=== PATIENT | female | born 1965 | race Caucasian/White ===

== ENCOUNTER 2021-11-22 06:57 | Outpatient (CLI) | payer BC ==
[2021-11-22] VITALS (17 sets, daily range): BP systolic 107–141; BP diastolic 68–96; PULSE 73–107; TEMP 98.1
[~2021-11-22] VITALS: Ht 162.6 cm; Wt 66.4 kg
[~2021-11-22 06:57] MED LIST: ASPIR-LOW81 MG PO; ATORVASTATIN; LIPITOR 40MG TA40 MG PO; WELLBUTRIN SR150 M1 PO; ZOVIRAX400 MG PO; ZYRTEC 10MG; rhinocort
--- NOTE | 2021-11-22 07:40 | NUR ---
pt to ct per wheelchair. Pt positioned in prone position on CT table. Monitors applied and O2 on at 2l/nc.
--- NOTE | 2021-11-22 07:50 | NUR ---
Dr Giang viewing films, into talk with pt regarding procedure.
--- NOTE | 2021-11-22 07:50 | NUR ---
Pt coughing frequently, pt given fentanyly 25 mcg to assist with depressing the cough.
--- NOTE | 2021-11-22 08:08 | NUR ---
Specimen obtained and placed in formalin by Dr Giang. Specimen labeled.
--- NOTE | 2021-11-22 11:35 | NUR ---
DC instructions reviewed with pt and , both express understanding. Bandaid remains clean, dry and intact. Respirations even and unlabored. INT DC'd with catheter intact. She is assisted out by wheelchair to 's car.
== END 2021-11-22 11:35 | disposition home or self-care (01) ==
LOC: COL.RAD 06:57
DX: C34.90 Malignant neoplasm of unspecified part of unspecified bronchus or lung (principal); R91.8 Other nonspecific abnormal finding of lung field
CPT/HCPCS: J3010

== ENCOUNTER 2022-01-21 07:50 | Day surgery (SDC) | payer BC ==
[~2022-01-21] VITALS: Ht 162.6 cm; Wt 61.2 kg
[2022-01-21 09:37] VITALS: BP 119/70; PULSE 133; TEMP 98.2
[2022-01-21 10:50] VITALS: BP 121/69; PULSE 125
--- NOTE | 2022-01-21 10:50 | NUR ---
Patient returns to room 2 per cart after having bronchoscopy and is coughing moderate amount. Breathing treatment being given. IV fluids infusing via port a catheter. Spouse in the room. Call light in reach and siderails up x2. Having slight amount of bleeding from nose. Spouse states that this happens frequently due to the oxygen. Taking ice chips and water.
[2022-01-21 11:05] VITALS: BP 120/82; PULSE 129
--- NOTE | 2022-01-21 11:05 | NUR ---
Continues to have coughing. Taking water.
[2022-01-21 11:20] VITALS: BP 100/85; PULSE 127
--- NOTE | 2022-01-21 11:20 | NUR ---
Less coughing. Offered snack and is eating vanilla pudding.
--- NOTE | 2022-01-21 11:22 | NUR ---
Dr. Zarco here and talks with patient and spouse. Eating vanilla pudding.
[2022-01-21 11:35] VITALS: BP 113/81; PULSE 123
--- NOTE | 2022-01-21 11:35 | NUR ---
Port a catheter deaccessed and was flushed with Heparin and saline per protocol. Assisted across the hallway to the bathroom on portable oxygen at 2L.
--- NOTE | 2022-01-21 11:53 | NUR ---
Dismissal instructions given and voices understanding of these.
--- NOTE | 2022-01-21 11:57 | NUR ---
Patient dismissed to home driven by spouse and taken to the front door per wheelchair and assisted into vehicle with instructions in hand.
== END 2022-01-21 11:57 | disposition home or self-care (01) ==
LOC: SDCO 07:50
DX: R09.02 Hypoxemia (principal); C34.91 Malignant neoplasm of unspecified part of right bronchus or lung; Z87.891 Personal history of nicotine dependence; Z79.899 Other long term (current) drug therapy; Z92.3 Personal history of irradiation; Z99.81 Dependence on supplemental oxygen; Z79.52 Long term (current) use of systemic steroids; Z85.828 Personal history of other malignant neoplasm of skin
CPT/HCPCS: J1644; J2704; J7120

== ENCOUNTER 2022-03-12 11:58 | Emergency (ER) | payer BC ==
[~2022-03-12] VITALS: Ht 162.6 cm; Wt 64.1 kg
[2022-03-12 12:20] VITALS: TEMP 98.3
[2022-03-12 12:58] LABS: EOS % 0.3 % (0.0-4.0); GRAN # 2.9 K/mm3 (1.4-6.5); GRAN % 71.7 % (42.2-75.2); LYMPH # 0.6 K/mm3 (1.2-3.4); LYMPH % 14.6 % (20.0-51.0); MEAN CELL VOLUME 100 fl (80.0-100.0); MEAN CORPUSCULAR HGB CONC 34 g/dl (33.0-37.0); MEAN PLATELET VOLUME 10.1 fl (7.4-10.4); MONO # 0.5 K/mm3 (0.1-0.6); MONO % 13.1 % (1.7-9.3); PLATELET COUNT 119 K/mm3 (130-400); RED BLOOD COUNT 2.44 M/mm3 (4.10-5.30); REDCELL DISTRIBUTION WIDTH-CV 19.3 % (11.5-14.5)
[2022-03-12 13:00] LABS: HEMATOCRIT 24.5 % (37.0-47.0); HEMOGLOBIN 8.2 g/dl (12.5-16.0); MEAN CORPUSCULAR HEMOGLOBIN 34 pg (27-31)
[2022-03-12 13:17] LABS: ALBUMIN 3.6 gm/dL (3.5-5.0); BILIRUBIN,TOTAL 0.3 mg/dL (0.2-1.2); CALCIUM 9.4 mg/dL (8.4-10.2); CREATININE, serum 0.77 mg/dL (0.57-1.11); POTASSIUM 4.1 mmol/L (3.5-4.5); TOTAL PROTEIN 7.2 gm/dL (6.2-8.1)
[2022-03-12] MEDS ORDERED: NORCO 325 MG-51 TAB PO (15:20)
[2022-03-12 15:30] VITALS: BP 120/94; PULSE 98
== END 2022-03-12 15:30 | disposition home or self-care (01) ==
LOC: COL.ER 11:58
PROVIDERS: Family Medicine
DX: C34.90 Malignant neoplasm of unspecified part of unspecified bronchus or lung (principal)
CPT/HCPCS: Q9967

== ENCOUNTER 2022-04-29 17:28 | Inpatient (IN) | payer BC ==
[~2022-04-29] VITALS: Ht 162.6 cm; Wt 63.2 kg
[~2022-04-29 17:28] MED LIST changes: +NORCO 325 MG-51 TAB PO
[2022-04-29 18:33] LABS: BASO % 0.3 % (0.0-2.0); EOS # 0.1 K/mm3 (0.0-0.7); EOS % 0.4 % (0.0-4.0); GRAN # 13.7 K/mm3 (1.4-6.5); GRAN % 85.3 % (42.2-75.2); HEMOGLOBIN 10.3 g/dl (12.5-16.0); LYMPH # 0.9 K/mm3 (1.2-3.4); LYMPH % 5.9 % (20.0-51.0); MEAN CELL VOLUME 97 fl (80.0-100.0); MEAN CORPUSCULAR HEMOGLOBIN 31 pg (27-31); MEAN CORPUSCULAR HGB CONC 32 g/dl (33.0-37.0); MEAN PLATELET VOLUME 10.1 fl (7.4-10.4); MONO # 1.2 K/mm3 (0.1-0.6); MONO % 7.6 % (1.7-9.3); PLATELET COUNT 354 K/mm3 (130-400); RED BLOOD COUNT 3.29 M/mm3 (4.10-5.30); REDCELL DISTRIBUTION WIDTH-CV 14.6 % (11.5-14.5)
[2022-04-29 18:37] LABS: HEMATOCRIT 31.9 % (37.0-47.0)
[2022-04-29 18:49] LABS: ALANINE AMINOTRANSFERASE 22 U/L (0-55); ALBUMIN 3.2 gm/dL (3.5-5.0); ALKALINE PHOSPHATASE 109 U/L (40-150); ANION GAP 15 mmol/L (7-16); AST,SGOT 27 U/L (5-34); BILIRUBIN,TOTAL 0.2 mg/dL (0.2-1.2); BLOOD UREA NITROGEN 12 mg/dL (10-20); C-REACTIVE PROTEIN 6.33 mg/dL (0.00-0.50); CALCIUM 9.8 mg/dL (8.4-10.2); CARBON DIOXIDE 23 mmol/L (22-29); CHLORIDE 103 mmol/L (98-107); CREATININE, serum 0.74 mg/dL (0.57-1.11); GLUCOSE 93 mg/dL (70-99); POTASSIUM 3.8 mmol/L (3.5-4.5); SODIUM 141 mmol/L (136-145); TOTAL PROTEIN 7.2 gm/dL (6.2-8.1)
[2022-04-29 19:02] LABS: TROPONIN-I < 0.010 ng/mL (0.00-0.033)
[2022-04-29 19:19] LABS: COLLECTION METHOD CLEAN CATCH
[2022-04-29 19:26] LABS: MUCOUS Present (NOT PRESENT); PH 5 (5-8); SQUAMOUS EPITHELIAL 0-2 /hpf (0-10); URINE APPEARANCE Clear (CLEAR/HAZY); URINE BACTERIA None Seen /hpf (NONE SEEN); URINE BLOOD 2+ (NEGATIVE); URINE COLOR Yellow (YELLOW); URINE GLUCOSE Negative (NEGATIVE); URINE KETONE Negative (NEGATIVE); URINE NITRATE Negative (NEGATIVE); URINE PROTEIN(semi-quant) Negative (NEGATIVE); URINE RBC 0-2 /hpf (0-2); URINE UROBILINOGEN Negative (NEGATIVE)
--- NOTE | 2022-04-29 21:24 | NUR ---
RCVD REPORT FROM RASHIDA HOYT IN ED. SHE STATES THEY WILL BRING THE PATIENT UP SOON.
[2022-04-29] MEDS ORDERED: NORCO 325 MG-51 TAB PO (21:38)
[2022-04-29] MEDS ORDERED: ZYRTEC 10MG10 MG PO (21:39)
[2022-04-29] MEDS ORDERED: LIPITOR 40MG TA40 MG PO (21:39)
[2022-04-29] MEDS ORDERED: TYLENOL 500MG500 MG PO (23:00)
[2022-04-29] MEDS ORDERED: IBU400 MG PO (23:01)
--- NOTE | 2022-04-29 23:13 | NUR ---
THE PATIENT IS ON THE FLOOR, C/O PAIN 8-9/10 ALL OVER HER BACK. OFFERED KPAD, PATIENT ACCEPTED. THE PATIENT ASSESSMENT IS COMPLETED. VSS. PT IS LAYING IN HER BED, TAKING SIPS OF WATER. AWARE OF NPO STATUS AT MIDNIGHT FOR PREP OF THORACENTESIS IN THE AM. NO OTHER CONCERNS AT THIS TIME. MED RECONCILLIATION COMPLETED. WILL CONTINUE TO MONITOR.
[2022-04-30] VITALS (14 sets, daily range): BP systolic 106–136; BP diastolic 56–72; PULSE 98–117; TEMP 98.2–99.2
[2022-04-30 00:09] LABS: COLLECTION METHOD CLEAN CATCH
[2022-04-30 00:18] LABS: MUCOUS Present (NOT PRESENT); PH 5 (5-8); URINE APPEARANCE Clear (CLEAR/HAZY); URINE BACTERIA None Seen /hpf (NONE SEEN); URINE BLOOD Negative (NEGATIVE); URINE COLOR Yellow (YELLOW); URINE GLUCOSE Negative (NEGATIVE); URINE KETONE Negative (NEGATIVE); URINE NITRATE Negative (NEGATIVE); URINE PROTEIN(semi-quant) Negative (NEGATIVE); URINE UROBILINOGEN Negative (NEGATIVE)
--- NOTE | 2022-04-30 00:33 | NUR ---
PT IS SLEEPING COMFORTABLY. DENIES ANY PAIN. PATIENT WAS GIVEN PAIN MEDICATIONS TO HELP WITH SEVERE PAIN. SHE IS GOING TO BE NPO AT [facility] FOR THORACENTESIS IN THE MORNING. NO OTHER CONCERNS. PT AWARE OF NPO STATUS AND AGREES TO THE THORACENTESIS. NO OTHER CONCERNS.
[2022-04-30] MEDS ORDERED: SALONPAS1 EACH TP (03:21)
[2022-04-30] MEDS ORDERED: IMFINZI120 MG/2.4 (03:22)
[2022-04-30 07:32] LABS: BASO % 0.3 % (0.0-2.0); EOS # 0.1 K/mm3 (0.0-0.7); EOS % 0.6 % (0.0-4.0); GRAN # 11.8 K/mm3 (1.4-6.5); GRAN % 86.8 % (42.2-75.2); LYMPH # 0.5 K/mm3 (1.2-3.4); LYMPH % 3.8 % (20.0-51.0); MEAN CELL VOLUME 99 fl (80.0-100.0); MEAN CORPUSCULAR HGB CONC 32 g/dl (33.0-37.0); MEAN PLATELET VOLUME 10.6 fl (7.4-10.4); MONO % 7.6 % (1.7-9.3); PLATELET COUNT 309 K/mm3 (130-400); RED BLOOD COUNT 2.77 M/mm3 (4.10-5.30); REDCELL DISTRIBUTION WIDTH-CV 14.5 % (11.5-14.5)
[2022-04-30 07:35] LABS: HEMATOCRIT 27.5 % (37.0-47.0); HEMOGLOBIN 8.7 g/dl (12.5-16.0); MEAN CORPUSCULAR HEMOGLOBIN 31 pg (27-31)
[2022-04-30 07:46] LABS: CALCIUM 8.9 mg/dL (8.4-10.2); CREATININE, serum 0.67 mg/dL (0.57-1.11); POTASSIUM 3.6 mmol/L (3.5-4.5)
--- NOTE | 2022-04-30 12:11 | NUR ---
Scheduled medications given. Shift assessment preformed. VSS. Patient A&O. Patient currently requiring 3L of O2 via nasal cannula. Dyspnea upon exertion noted. Verbal order for Lidocaine recieved from Dr. Zarco. Consent for thora signed and on the chart. Lidocaine patch placed. Patient denies any further pain, discomfort, SOA, or further needs at this time. Call light in reach.
--- NOTE | 2022-04-30 12:15 | NUR ---
SW met with patient to complete intake. Patient states that she lives in [place], [place] with her Pola [phone]. Patient provides that she does not utilize DME and is independent with ADL's. PCP is Dr. Shi and pharmacy is [facility]. Patient states that her has been appointed as her DPOA/HC. Patient plans to return to her home upon DC. SW will continue to follow. DC plan: Home
--- NOTE | 2022-04-30 12:44 | NUR ---
Chaplain mosher and offered support with patient.
[2022-04-30 14:09] LABS: PLEURAL FLUID COLOR YELLOW; PLEURAL FLUID RBC 3000 /mm3 (0-0); PLEURAL FLUID WBC 459 /mm3
[2022-04-30 14:10] LABS: PLEURAL FLUID APPEARANCE HAZY
--- NOTE | 2022-04-30 22:28 | NUR ---
Patient assessed around 1924. Alert and oriented x 4, and able to make needs known. On oxygen at 3 L/min via NC. Denies SOB and dyspnea. Reports feeling much better after thoracentesis. Bandaid to site on right back CDI. Patient did have pain and requested pain medication at 2109. Reported when pain was there it was a 10 to her chest, due to taking deep breaths in her sleep. Given PRN [place]. Voices no further questions, needs, or concerns at this time. In bed with call light within reach.
[2022-05-01 01:05] VITALS: BP 115/65; PULSE 102; TEMP 98.4
[2022-05-01 04:56] VITALS: BP 121/56; PULSE 112; TEMP 98.1
--- NOTE | 2022-05-01 06:09 | NUR ---
Unable to draw blood from port this morning. IV ABX running per orders. Will have day shift try to draw blood when stopping ABX. Given PRN [place]. Patient voices no questions, needs, or concerns at this time. In bed with call light within reach. On oxygen at 3 L/min via NC.
[2022-05-01 08:30] VITALS: BP 121/73; PULSE 110; TEMP 98.9
--- NOTE | 2022-05-01 11:42 | NUR ---
Scheduled medications given. Shift assessment preformed. Patient tachy, all other VSS. Patient currently requiring 3L of O2 via nasal cannula. Dyspnea upon exertion noted. Patient c/o of 3/10 chest pain with deep inspiration. Scheduled tylenol given, lidocaine patch placed. Ramez cath in place, flushes well, but no blood return noted. Dr. Barrios notified and verbal order for cath flow recieved. Patient denies any further pain, discomfort, SOA, or further needs at this time. Call light in reach. Family at the bedside.
[2022-05-01 13:23] VITALS: BP 121/61; PULSE 103; TEMP 98.1
[2022-05-01 14:12] LABS: BASO # 0.1 K/mm3 (0.0-0.2); BASO % 0.3 % (0.0-2.0); EOS # 0.1 K/mm3 (0.0-0.7); EOS % 0.5 % (0.0-4.0); GRAN # 13.5 K/mm3 (1.4-6.5); GRAN % 88.4 % (42.2-75.2); LYMPH # 0.7 K/mm3 (1.2-3.4); LYMPH % 4.8 % (20.0-51.0); MEAN CELL VOLUME 96 fl (80.0-100.0); MEAN CORPUSCULAR HEMOGLOBIN 31 pg (27-31); MEAN CORPUSCULAR HGB CONC 33 g/dl (33.0-37.0); MEAN PLATELET VOLUME 10.1 fl (7.4-10.4); MONO # 0.8 K/mm3 (0.1-0.6); MONO % 5.5 % (1.7-9.3); PLATELET COUNT 319 K/mm3 (130-400); REDCELL DISTRIBUTION WIDTH-CV 14.5 % (11.5-14.5)
[2022-05-01 14:14] LABS: HEMATOCRIT 30.7 % (37.0-47.0)
[2022-05-01 14:25] LABS: CALCIUM 9.3 mg/dL (8.4-10.2); CREATININE, serum 0.7 mg/dL (0.57-1.11); POTASSIUM 3.5 mmol/L (3.5-4.5)
[2022-05-01 17:03] VITALS: BP 112/72; PULSE 111; TEMP 98.7
[2022-05-01 17:50] LABS: CLOSTRIDIUM DIFF A/B NEG; CLOSTRIDIUM DIFF A/B INTERP No C.diff present
--- NOTE | 2022-05-01 19:35 | NUR ---
Patient has had an ok day. VSS. Patient A&O. Currently requring 2L of O2 via nasal cannula. Dyspnea upon exertion noted. PRN pain medication given several times this shift for chest pain on inspiration. Patient jazminenlty denies any pain, discomfort, SOA, or further needs at this time. Call light in reach.
[2022-05-01 20:42] VITALS: BP 109/52; PULSE 116; TEMP 99.7
--- NOTE | 2022-05-01 23:09 | NUR ---
Patient assessed around 1944. Alert and oriented, and able to make needs known. Given PRN [place] for pain around 2144. On oxygen at 3 L/min via NC. Patient refused colace, stating she has been having loose stools. Voices no questions, needs, or concerns at this time. In bed with call light within reach.
[2022-05-02 00:12] VITALS: BP 122/63; PULSE 103; TEMP 98.9
--- NOTE | 2022-05-02 05:30 | NUR ---
Patient received PRN [place] for pain during the night. Continues on IV ABX per orders. Voices no questions, needs, or concerns at this time. In bed with call light within reach. Remains on oxygen at 3 L/min via NC.
[2022-05-02 06:00] VITALS: BP 119/60; PULSE 105; TEMP 99
[2022-05-02 07:36] VITALS: BP 113/60; PULSE 107; TEMP 98.3
--- NOTE | 2022-05-02 09:20 | NUR ---
Initial visit; Family using telephone, Yard Coordinator offered God's blessings and will keep Harriet in her prayers. Yard Coordinator will follow up while Harriet is a patient.
--- NOTE | 2022-05-02 09:34 | NUR ---
PT SITTING UP IN BED. MORNING MEDICATIONS GIVEN. SHIFT ASSESSMENT COMPLETED. PT CURRENTLY ON 3L VIA NC. REPORTING CHEST/BACK/FLANK PAIN OF 8/10, MEDICATION GIVEN PER eMAR. PT DENIES ANY OTHER NEEDS AT THIS TIME. WILL CONTINUE TO MONITOR.
--- NOTE | 2022-05-02 10:11 | NUR ---
Follow-up visit; Patient and her ; Pola called Automobile Mechanic back up to her room to discuss her decision to not seek further treatment for her cancer. Harriet stated she would rather spend her final days able to enjoy her family rather than being ill as a result of treatment, though she feels guilty and that it may be interpreted as her giving up. Automobile Mechanic talked with Harriet about taking the burden off herself and giving it to God, knowing she is doing the right thing for herself and her family. Automobile Mechanic prayed with Harriet and Pola and gave them her card so they can contact Automobile Mechanic and/or come visit and bring their son if they feel that they would like someone else to help him understand.
--- NOTE | 2022-05-02 11:44 | NUR ---
Attended rounds with hospitalist. Patient and spouse agreeable to transitioning to comfort care and eventually home hospice. SW aware and working on agencies available at patient's residence. Patient also planning to get a PleurX drain, requested I provided education and demonstration this afternoon as patient feels anxious and a little scared about everything. Briefly discussed hospice and the PleurX but then stepped out to let her rest and get a dose of anxiety medication she requested. Provided my contact information as well.
--- NOTE | 2022-05-02 13:26 | NUR ---
Met with patient to discuss PleurX drain. Did not go over home procedure as patient will have home hospice agency to assist. Dionte from [facility] step in as we were finishing up so I will check back once they are done.
[2022-05-02] MEDS ORDERED: IPRATROPIUM BROM3 M1 IH (13:46)
[2022-05-02] MEDS ORDERED: ATIVAN 0.50.5 MG/TAB PO (13:46)
[2022-05-02] MEDS ORDERED: TYLENOL W/COD1 UDTAB PO (13:47)
--- NOTE | 2022-05-02 14:40 | NUR ---
Patient concerned that if she discharges later today that she will be unable to fill her anxiety medication. Confirmed with pharmacy that they have home packs available to send home with the patient. Notified care team and patient of the availability. Patient states all the information has helped her and appreciates everything we are doing for her.
--- NOTE | 2022-05-02 16:03 | NUR ---
Bioinformatics Technician met with patient to discuss discharge planning. Patient wants to return home on hospice with the understanding that at some point, she will likely need placement and wants to go to [facility]. Patient is currently independent and is comfortable going home, however knows that this may not be the case in the future. Patient is agreeable to have referral sent to [facility] for future reference. Patient would like to utilize whatever hospice agency works with [facility]. [facility] contacted Fatou at [facility] who advised they work with [facility], but are also working on a contract with [facility]. [facility] contacted [facility]. They do not serve [place]. [facility] then contacted [facility] and faxed referral. [facility] met with patient and they will accept patient. They will start services on Monday, after patient's pleurx drain is placed. [facility] advised they can manage the drain and order supplies. [facility] met with patient and and they are comfortable with this plan. Patient will discharge home today. [facility] faxed orders to Dionte at [facility] and also notified Fatou at [facility] of discharge and advised that patient would like to tour their facility.
--- NOTE | 2022-05-02 17:02 | NUR ---
PORT D/C. TELE D/C. DISCHARGE INSTRUCTIONS GIVEN, AT BEDSIDE,ALL QUESTIONS ANSWERED. PT ESCORTED DOWN WITH PERSONAL BELONGINGS. WILL D/C FROM SYSTEM.
[2022-05-02 17:47] LABS: BODY FLUID PH (AMS) 7.46
[2022-05-03] MEDS ORDERED: ATIVAN 0.50.5 MG/TAB PO (11:17)
== END 2022-05-02 17:04 | disposition hospice, home (50) | DRG 871 ==
LOC: COL.ER 17:28 → MEDICAL 21:06
PROVIDERS: Emergency Medicine; Family Medicine; Internal Medicine Pulmonary Disease; Nurse Practitioner Family; ADMIT Internal Medicine
PROC: 0W993ZX Drainage of Right Pleural Cavity, Percutaneous Approach, Diagnostic (ICD-10-PCS; principal; 2022-04-30)
DX: A41.9 Sepsis, unspecified organism (principal); J96.21 Acute and chronic respiratory failure with hypoxia; C34.90 Malignant neoplasm of unspecified part of unspecified bronchus or lung; C77.9 Secondary and unspecified malignant neoplasm of lymph node, unspecified; J98.11 Atelectasis; J91.0 Malignant pleural effusion; K59.03 Drug induced constipation; T40.605A Adverse effect of unspecified narcotics, initial encounter; Z66 Do not resuscitate; Z51.5 Encounter for palliative care; D64.9 Anemia, unspecified; E83.52 Hypercalcemia; E78.5 Hyperlipidemia, unspecified; Z20.822 Contact with and (suspected) exposure to COVID-19; Z79.891 Long term (current) use of opiate analgesic; Z79.899 Other long term (current) drug therapy; Z92.3 Personal history of irradiation; Z92.21 Personal history of antineoplastic chemotherapy; Z87.891 Personal history of nicotine dependence; Z88.0 Allergy status to penicillin; Z88.2 Allergy status to sulfonamides; Z88.1 Allergy status to other antibiotic agents
CPT/HCPCS: J0692; J2997; J3010; J7030; Q9967

== ENCOUNTER 2022-05-06 08:09 | Day surgery (SDC) | payer BC ==
[~2022-05-06] VITALS: Ht 162.6 cm; Wt 28.7 kg
[~2022-05-06 08:09] MED LIST changes: +ATIVAN 0.50.5 MG/TAB PO; +IBU400 MG PO; +IMFINZI120 MG/2.4; +IPRATROPIUM BROM3 M1 IH; +SALONPAS1 EACH TP; +TYLENOL 500MG500 MG PO; +TYLENOL W/COD1 UDTAB PO; +ZYRTEC 10MG10 MG PO
--- NOTE | 2022-05-06 08:45 | NUR ---
Port accessed with the help of RASHIDA Martinez.
[2022-05-06 09:06] VITALS: BP 104/68; PULSE 132; TEMP 98.6
[2022-05-06 11:20] VITALS: BP 107/72; PULSE 124; TEMP 98.4
[2022-05-06 11:35] VITALS: BP 102/72; PULSE 123
[2022-05-06 11:50] VITALS: BP 106/71; PULSE 122
[2022-05-06 12:05] VITALS: BP 104/64; PULSE 120
--- NOTE | 2022-05-06 13:09 | NUR ---
1120: Patient arrived back into bay 1 from Same Day Procedure Room. Patient is alert and oriented. Vital signs at patient's baseline on 3L. Report received from RASHIDA Ortiz Patient requesting ice chips and applesauce. Patient rating pain 6/10 to incisional area. PRN pain medication given per MAR. Denies nausea. Call light left within reach. 1135: Patient's vitals baseline per patient. Tolerating food and drink well. Dr. Zarco in to see patient. Paper script given to patient. 1150: Patient resting in cart. Tolerating food and drink well. 1205: Patient meets discharge criteria. Single port central line deaccessed per protocol. Went through discharge instructions with patient and . Additional paper order of plerual drainage instructions given to patient for home health agency. Patient got dressed. Escorted to patient entrance via wheelchair. Patient got into personal vehicle and left in the care of her
[2022-05-06 20:05] VITALS: BP 112/82; PULSE 126
== END 2022-05-06 12:30 | disposition home or self-care (01) ==
LOC: SDCO 08:09
DX: J90 Pleural effusion, not elsewhere classified (principal); J96.21 Acute and chronic respiratory failure with hypoxia; K59.03 Drug induced constipation; T40.605A Adverse effect of unspecified narcotics, initial encounter; N39.0 Urinary tract infection, site not specified; E78.5 Hyperlipidemia, unspecified; C34.90 Malignant neoplasm of unspecified part of unspecified bronchus or lung; Z92.21 Personal history of antineoplastic chemotherapy; Z92.3 Personal history of irradiation; Z79.899 Other long term (current) drug therapy; F17.210 Nicotine dependence, cigarettes, uncomplicated
CPT/HCPCS: A7048; C1729; J1644; J2250; J2270; J2704; J3010; J7120